=== PATIENT | female | born 1950 | race Caucasian/White ===

== ENCOUNTER 2020-04-19 14:29 | Outpatient (CLI) | payer MEDICARE, BC, SELFPAY ==
--- NOTE | ~2020-04-19 | DEXA_ITS ---
BMD(1) Young-Adult(2) Age-Matched(3) Region (g/cm2) T-score Z-score WHO Classification L1 1.276 1.1 2.6 Normal L2 1.462 2.1 3.6 Normal L3 1.685 3.7 5.3 Normal L4 1.774 4.3 5.8 Normal L1-L4 1.553 2.9 4.4 Normal Trend: L1-L4 Change vs Change vs Measured Age BMD(1) Baseline Previous Date (years) (g/cm2) (%) (%) 04/19/2020 [age] 1.553 baseline - 1 - Statistically 68% of repeat scans fall within 1SD (+- 0.010 g/cm2 for AP Spine L1-L4) 2 - [place] (Combined NHANES (ages 20-30) / PanOptica (ages 20-40)) AP Spine Reference Population (v112) 3 - Matched for Age, Weight (females 25-100 kg), Ethnic 11 - World Health Organization - Definition of Osteoporosis and Osteopenia for Women: Normal = T-score at or above -1.0 SD; Osteopenia = T-score between -1.0 and -2.5 SD; Osteoporosis = T-score at or below -2.5 SD; (WHO definitions only apply when a young healthy Women reference database is used to determine T-scores.) Printed: 04/19/2020 3:08:00 PM (13.60)76:3.00:50.00:12.0 0.00:9.30 0.60x1.05 22.6:%Fat=44.3% 0.00:0.00 0.00:0.00 Filename: [id number] Scan Mode: Standard;OneScan 37.0 G[employer] Mobile [id number] BMD(1) Young-Adult(2,7) Age-Matched(3) Region (g/cm2) T-score Z-score WHO Classification Neck Left 0.833 -1.5 0.0 Osteopenia Right 0.830 -1.5 0.0 Osteopenia Mean 0.832 -1.5 0.0 Osteopenia Difference 0.003 0.0 0.0 - Total Left 0.894 -0.9 0.3 Normal Right 0.862 -1.2 0.1 Osteopenia Mean 0.878 -1.0 0.2 Normal Difference 0.031 0.2 0.2 - Hip [place] Length Comparison (mm) (Right = 103.5 mm) (Mean = 103.2 mm) (Left = 101.6 mm) Trend: Total Mean Change vs Change vs Measured Age BMD(1) Baseline Previous Date (years) (g/cm2) (%) (%) 04/19/2020 69.4 0.878 baseline - 1 - Statistically 68% of repeat scans fall within 1SD (+- 0.010 g/cm2 for DualFemur Total) 2 - [place] (Combined NHANES (ages 20-30) / [employer] (ages 20-40)) Femur Reference Population (v112) 3 - Matched for Age, Weight (females 25-100 kg), Ethnic 7 - DualFemur Total T-score difference is 0.2. Asymmetry is None. 11 - World Health Organization - Definition of Osteoporosis and Osteopenia for Women: Normal = T-score at or above -1.0 SD; Osteopenia = T-score between -1.0 and -2.5 SD; Osteoporosis = T-score at or below -2.5 SD; (WHO definitions only apply when a young healthy Women reference database is used to determine T-scores.) Printed: 04/19/2020 3:08:00 PM (13.60); Filename: [id number]; Right Femur; 18.3:%Fat=28.4%; Neck Angle (deg)= 63; Scan Mode: Standard 37.0 uGy; Left Femur; 18.2:%Fat=25.3%; Neck Angle (deg)= 64; Scan Mode: Standard 37.0 uGy Got[employer] [id number] Dear Jaswinder Joiner, Your patient Kayla Bajwa completed a BMD test on 04/19/2020 using the Gotuit DXA System (analysis version: 13.60) manufactured by [employer]. The following summarizes the results of our evaluation. PATIENT BIOGRAPHICAL: Name: Kayla Bajwa Date: 1950 Height: 62.0 in. Gender: Female Exam Date: 04/19/2020 Weight: 150.0 lbs. Indications: Caffeinated drinks, Fractures: Treatments:
== END 2020-04-19 14:30 | disposition home or self-care (01) ==
LOC: CHSIMG 14:34
PROVIDERS: PCP Family Medicine; Visit Provider Family Medicine
DX: Z78.0 Asymptomatic menopausal state (principal)
CPT/HCPCS: 77080

== ENCOUNTER 2022-02-26 14:52 | Outpatient (CLI) | payer MEDICARE, SELFPAY ==
[2022-02-26 15:56] LABS: Influenza Control Valid (Valid)
== END 2022-02-26 14:53 | disposition home or self-care (01) ==
LOC: CHSLAB 14:57
PROVIDERS: PCP Family Medicine
DX: J01.90 Acute sinusitis, unspecified (principal)
CPT/HCPCS: 87804

== ENCOUNTER 2023-04-08 17:37 | Outpatient (CLI) | payer MEDICARE, BC, SELFPAY ==
--- NOTE | ~2023-04-08 | DEXA_ITS ---
? Bone Density Report? Name:? Garett Lesli Garza Patient ID:??? [id number] Age:? 72 Sex:? Female Ethnicity:? White Date of : 1950 Indication: postmenopausal; screening for osteoporosis; Referring Provider: Marisel, Jaswinder Study: Bone densitometry was performed. Exam Date: April 08, 2023 Accession number: [id number] Bone Density: Region? BMD??? T-score? Z-score?? Classification AP Spine(L2, L3, L4)? 1.282??? 1.8?4.0? Normal Femoral Neck (Left)? 0.681? ? -1.5? 0.3? Osteopenia Total Hip (Left)? 0.862? ? -0.7? 0.9? Normal Femoral Neck (Right)? 0.683? ? -1.5? 0.3? Osteopenia Total Hip (Right)? 0.787? ? -1.3? 0.2? Osteopenia Femoral Neck Mean? 0.682?? -1.5? 0.3? Osteopenia Total Hip Mean? 0.824?? -1.0? 0.6? Normal World Health Organization criteria for BMD impression classify patients as: Normal (T-score at or above -1.0), Osteopenia (T-score between -1.0 and -2.5), or Osteoporosis (T-score at or below -2.5). 10-year Fracture Risk(1): Major Osteoporotic Fracture? 10% Hip Fracture? 1.5% Reported Risk Factors: [place] (), Neck BMD=0.681, BMI=26.5 (1) FRAX? Version 3.08. Fracture probability calculated for an untreated patient. Fracture probability may be lower if the patient has received treatment. Clinical Information Provided by Patient: Has used the following medications: Vitamin D, Calcium Patient maximum height was 62 Menopause Age: 52 Drinks caffeinated beverages Onset of menses at age 14 Number of children 4 Impression: The patient has low bone mass, based on the Left Femoral Neck T- score. Discussion: BONE DENSITY IS LOW AT ONE OR MORE SKELETAL SITES. This patient's lowest T-score is low at one or more skeletal sites.? It meets the World Health Organization's (WHO) criteria for ?low bone mass?? (T-score between -1.0 and -2.5).? The patient's 10-year risk of fracture as calculated by FRAX is less than the threshold where pharmacological therapy is recommended by the National Osteoporosis Foundation (NOF).? However, all treatment decisions require clinical judgment and consideration of individual patient factors, including patient preferences, comorbidities, previous drug use, risk factors not captured in the FRAX model (e.g., frailty, falls, vitamin D deficiency, increased bone turnover, interval significant decline in bone density) and possible under or overestimation of fracture risk by FRAX. The patient should follow a healthful lifestyle (good nutrition with adequate calcium and vitamin D, and appropriate weight-bearing exercise). Follow-Up: Consider repeating this study in 2 to 3 years to reassess this patient's status, or sooner if there is some new clinical indication. Reported by: Dr. Virgil Valenzuela on :43:00 AM. MT[place]na
== END 2023-04-08 17:38 | disposition home or self-care (01) ==
LOC: CHSIMG 17:40
PROVIDERS: PCP Family Medicine; Visit Provider Family Medicine
DX: Z78.0 Asymptomatic menopausal state (principal); M85.89 Other specified disorders of bone density and structure, multiple sites
CPT/HCPCS: 77080

== ENCOUNTER 2023-09-03 14:04 | Outpatient (CLI) | payer MEDICARE, BC, SELFPAY ==
--- NOTE | ~2023-09-03 | XR_ITS ---
Clinical Indication: Cough PA and lateral views of the chest: Comparison: 03/18/2018 Findings: The lungs are clear, without evidence of focal consolidation or pleural effusion. Cardiome diastinal silhouette is within normal limits. Bones and soft tissues are unremarkable. Impression: Normal chest. Reviewed, dictated and finalized at [facility]. MECHANIC APPRENTICE Impression: Normal chest.
== END 2023-09-03 14:05 | disposition home or self-care (01) ==
LOC: CHSLAB 14:06
PROVIDERS: PCP Family Medicine; Visit Provider Family Medicine
DX: R05.9 Cough, unspecified (principal)
CPT/HCPCS: 71046

== ENCOUNTER 2023-09-29 16:18 | Outpatient (RCR) | payer MEDICARE, BC, SELFPAY ==
--- NOTE | 2023-09-30 10:08 | OPREHPOC ---
Outpatient Therapy Plan of Care This is a Multidisciplinary Plan of Care that may contain components documented by all disciplines (PT, OT, and ST.) PT Problem 1 PT Problem #1 Knowledge Deficit PT Goal 1 Goal 1. independent and compliant with HEP Target Visit 6 PT Problem 2 PT Problem #2 Pain PT Goal 1 Goal 1. 3/10 or less pain at worst in the L shoulder with lifting, pushing activities to improve her quality of life and functional activity performance. Target Visit 12 PT Problem 3 PT Problem #3 Impaired Range of Motion PT Goal 1 Goal 1. 160 degrees or better passive L shoulder flexion 2. 150 degrees or better active L shoulder flexion 3. 80 degrees or better active L shoulder ER Target Visit 12 PT Problem 4 PT Problem #4 Impaired Strength PT Goal 1 Goal 1. 4/5 or better L shoulder flexion and abduction without pain 2. 4+/5 or better L shoulder ER Target Visit 12 PT Problem 5 PT Problem #5 Impaired Functional Mobil PT Goal 1 Goal 1. QD to display less than 30% functional deficits 2. patient to achieve functional L UE reach behind head to the shirt collar without pain 3. patient to achieve functional L UR reach behind back to the bra line without pain 4. patient to push open doors/car door without pain Target Visit 12
--- NOTE | 2023-09-30 10:08 | PTOPEVAL1 ---
Assessment and note entered by JT File, PT Evaluation Information Assessment Status Evaluation Diagnosis L biceps tendonitis Onset 09/14/23 Subjective Information patient reports no injury. she reports her symptoms began a few days before skgi. she associates her symptoms around the time she was taken levoquin. she reports she has pain all in the muscle of the L shoulder. she reports opening a car door is painful. she reports she is getting better since initially having pain. she reports at times the pain will go down to the elbow. she reports difficulty with sleeping at time. she reports she does have a little bit of numbness while raising to lay on the L side. she reports she has had surgery on the L side in the past ( rotator cuff repair and subacromial decompression) . she reports she the symptoms are similar to when she had this rotator cuff tear. raising the arm is also painful. Reported Pain Level Pain Score 0: Self Report Assessment PT Clinical Summary mrs. vuong is a 72 yo woman who presents to skilled PT for evaluation and treatment of L shoulder pain. she presents with pain with movement, pain with palpation, decreased active/passive rom, and decreased strength of the L shoulder indicative of a rotator cuff and biceps long head tendonitis. she would benefit from continued skilled PT to improve her objective/functional deficits and progerss to her prior level functional activity performance/quality of life. Plan of Care Interventions Electrical Stimulation,Hot Pack/Cold Pack,Manual Therapy,Neuro Re-education,Patient/Caregiver Educati,Therapeutic Activities,Therapeutic Exercise PT Services Indicated Yes Treatment Frequency and 3x weekly for 12 visits Duration These treatments will address the objective and functional deficits as defined above. The patient will be advanced safely and appropriately in order for the patient to progress towards his/her prior level of function. Additional exercises will be introduced and as well as a comprehensive home exercise program upon discharge, if needed, ?to ensure carryover of functional gains achieved in the clinic. This treatment plan has been reviewed and agreement upon by the patient.
--- NOTE | 2023-10-27 07:50 | OPREHPOC ---
Outpatient Therapy Plan of Care This is a Multidisciplinary Plan of Care that may contain components documented by all disciplines (PT, OT, and ST.) PT Problem 1 PT Problem #1 Knowledge Deficit PT Goal 1 Goal 1. independent and compliant with HEP Target Visit 6 Progress Met PT Problem 2 PT Problem #2 Pain PT Goal 1 Goal 1. 3/10 or less pain at worst in the L shoulder with lifting, pushing activities to improve her quality of life and functional activity performance. Target Visit 12 Progress Partially Met PT Problem 3 PT Problem #3 Impaired Range of Motion PT Goal 1 Goal 1. 160 degrees or better passive L shoulder flexion 2. 150 degrees or better active L shoulder flexion 3. 80 degrees or better active L shoulder ER Target Visit 12 Progress Partially Met PT Problem 4 PT Problem #4 Impaired Strength PT Goal 1 Goal 1. 4/5 or better L shoulder flexion and abduction without pain 2. 4+/5 or better L shoulder ER Target Visit 12 Progress Partially Met PT Problem 5 PT Problem #5 Impaired Functional Mobil PT Goal 1 Goal 1. QD to display less than 30% functional deficits 2. patient to achieve functional L UE reach behind head to the shirt collar without pain 3. patient to achieve functional L UR reach behind back to the bra line without pain 4. patient to push open doors/car door without pain Target Visit 12 Progress Partially Met
--- NOTE | 2023-10-27 07:50 | PTOPPROGNS ---
Assessment and note entered by JT File, PT Evaluation Information Assessment Status Progress Diagnosis L biceps tendonitis Onset 09/14/23 Subjective Information patient reports she feels good today. she reports she has little pain in the L shoulder today. she reports she has been tolerating exercise in therapy well. Assessment PT Clinical Summary mrs. vuong presents to skilled PT for her 10th skilled PT visit this date. thus far in skilled PT she has been performing modalities for pain modulation, exercises for rom, and exercises for strength. as of this date, she displays increased shoulder rom and strength, and overall decreased pain. she would benefit from continued skilled PT to work on achievement of her remaining goals, and progress to and independent HEP when appropriate. Plan of Care Interventions Electrical Stimulation,Hot Pack/Cold Pack,Manual Therapy,Neuro Re-education,Patient/Caregiver Educati,Therapeutic Activities,Therapeutic Exercise PT Services Indicated Yes Treatment Frequency and continue skilled PT for remaining 2 visits per Duration initial POC These treatments will address the objective and functional deficits as defined above. The patient will be advanced safely and appropriately in order for the patient to progress towards his/her prior level of function. Additional exercises will be introduced and as well as a comprehensive home exercise program upon discharge, if needed, ?to ensure carryover of functional gains achieved in the clinic. This treatment plan has been reviewed and agreement upon by the patient.
--- NOTE | 2023-10-29 12:03 | OPREHPOC ---
Outpatient Therapy Plan of Care This is a Multidisciplinary Plan of Care that may contain components documented by all disciplines (PT, OT, and ST.) PT Problem 1 PT Problem #1 Knowledge Deficit PT Goal 1 Goal 1. independent and compliant with HEP Target Visit 6 Progress Met PT Problem 2 PT Problem #2 Pain PT Goal 1 Goal 1. 3/10 or less pain at worst in the L shoulder with lifting, pushing activities to improve her quality of life and functional activity performance. Target Visit 12 Progress Met PT Problem 3 PT Problem #3 Impaired Range of Motion PT Goal 1 Goal 1. 160 degrees or better passive L shoulder flexion 2. 150 degrees or better active L shoulder flexion 3. 80 degrees or better active L shoulder ER Target Visit 12 Progress Met PT Problem 4 PT Problem #4 Impaired Strength PT Goal 1 Goal 1. 4/5 or better L shoulder flexion and abduction without pain 2. 4+/5 or better L shoulder ER Target Visit 12 Progress Met PT Problem 5 PT Problem #5 Impaired Functional Mobil PT Goal 1 Goal 1. QD to display less than 30% functional deficits 2. patient to achieve functional L UE reach behind head to the shirt collar without pain 3. patient to achieve functional L UR reach behind back to the bra line without pain 4. patient to push open doors/car door without pain Target Visit 12 Progress Met
--- NOTE | 2023-10-29 12:03 | PTOPDC ---
Assessment and note entered by Sarah Locke, PT Evaluation Information Assessment Status Discharge Diagnosis L Biceps Tendonitis Onset 09/14/23 Subjective Information Kayla Bajwa reports her left shoulder is doing better. She is able to use her left arm to carry and lift household items without pain now. She occasionally has pain after repetitive use but she was able to carry boxes with [place] decorations without difficulty. She feels she is ready to continue on her own with home exercises. Reported Pain Level Pain Score 0: Self Report Pain Score 1: Self Report Assessment PT Clinical Summary Kayla Bajwa has completed 12 skilled PT visits. She is reporting ability to perform daily activities without pain now. She demonstrates improved left shoulder AROM to normal ranges, improved left shoulder strength, and improved posture. She will be discharged to an independent [facility]. Plan of Care PT Services Indicated Yes
== END 2023-10-29 16:18 | disposition home or self-care (01) ==
LOC: CHSPT 16:18
PROVIDERS: PCP Family Medicine; Visit Provider Family Medicine
DX: M75.22 Bicipital tendinitis, left shoulder (principal)
CPT/HCPCS: 97014; 97110; 97140; 97161; G0283

== ENCOUNTER 2024-08-10 08:14 | Outpatient (RCR) | payer MEDICARE, BC, SELFPAY ==
[2024-08-10 08:30] VITALS: BP_SYST 110
--- NOTE | 2024-08-11 07:50 | OPREHPOC ---
Outpatient Therapy Plan of Care This is a Multidisciplinary Plan of Care that may contain components documented by all disciplines (PT, OT, and ST.) PT Problem 1 PT Problem #1 Knowledge Deficit PT Goal 1 Goal / Goal Update 1. independent and compliant with HEP Target Visit 6 PT Problem 2 PT Problem #2 Pain PT Goal 1 Goal / Goal Update 1. decrease pain at worst to 3/10 or less in the R shoulder Target Visit 12 PT Problem 3 PT Problem #3 Impaired Range of Motion PT Goal 1 Goal / Goal Update 1. improve active R shoulder flexion to 150 degrees or better 2. improve active R shoulder abduction to 135 degrees or better 3. improve active R shoulder ER to 80 degrees or better 4. improve active R shoulder IR to 70 degrees or better Target Visit 12 PT Problem 4 PT Problem #4 Impaired Strength PT Goal 1 Goal / Goal Update 1. improve R shoulder strength to 4+/5 or better overall 2. improve R elbow strength to 5/5 Target Visit 12 PT Problem 5 PT Problem #5 Impaired Functional Mobil PT Goal 1 Goal / Goal Update 1. quick dash to display 30% or less functional deficits 2. patient to get dressed without pain 3. patient to reach behind back to the bra line without pain Target Visit 12
--- NOTE | 2024-08-11 07:50 | PTOPEVAL1 ---
Assessment and note entered by JT File, PT Evaluation Information Assessment Status Evaluation ICD-10 Condition Codes (PT) M25.511 Onset 07/27/24 Subjective Information patient reports she was in [place] and moving around her luggage and other peoples luggage. she reports she was in a small room, and was frequently having to lift her suitcase up and down on her bed to change and get new clothes. she reports she has increased pain with use of the R UE. she reports she is able to lift the arm up, but it is very painful. she reports the pain is in the side of the R shoulder. she reports lifting the arm up forward is better, but still painful. she is taking anti-inflammatory meds, but they do not totally get rid of her pain/symptoms. she reports she has not had any imaging or injections. she reports she does get a small amount of tingling in the R hand when the pain is really severe or she is very active. Reported Pain Level Pain Score 8: Self Report Assessment PT Clinical Summary mrs. vuong presents to skilled PT services for evaluation and treatment of R shoulder pain. she is experiencing pain for 2 weeks that is getting better. however, she presents still with pain at rest, pain with movement, decreased rom, weakness, and decreased functional activity performance/ reaching. she presents with signs and symptoms consistent with a RTC tendinopathy and impingement syndrome. she would benefit from continued skilled PT to address her objective/functional deficits to return to her prior level functional activity performance/quality of life. Plan of Care Interventions Electrical Stimulation,Hot Pack/Cold Pack,Manual Therapy,Neuro Re-education,Patient/Caregiver Educati,Therapeutic Activities,Therapeutic Exercise PT Services Indicated Yes Treatment Frequency and 3x weekly for 12 visits Duration These treatments will address the objective and functional deficits as defined above. The patient will be advanced safely and appropriately in order for the patient to progress towards his/her prior level of function. Additional exercises will be introduced and as well as a comprehensive home exercise program upon discharge, if needed, ?to ensure carryover of functional gains achieved in the clinic. This treatment plan has been reviewed and agreement upon by the patient.
--- NOTE | 2024-08-31 11:22 | OPREHPOC ---
Outpatient Therapy Plan of Care This is a Multidisciplinary Plan of Care that may contain components documented by all disciplines (PT, OT, and ST.) PT Problem 1 PT Problem #1 Knowledge Deficit PT Goal 1 Goal / Goal Update 1. independent and compliant with HEP Target Visit 6 PT Problem 2 PT Problem #2 Pain PT Goal 1 Goal / Goal Update 1. decrease pain at worst to 3/10 or less in the R shoulder Target Visit 12 Progress Not Met PT Goal 2 Goal / Goal Update continue PT Problem 3 PT Problem #3 Impaired Range of Motion PT Goal 1 Goal / Goal Update 1. improve active R shoulder flexion to 150 degrees or better not met 2. improve active R shoulder abduction to 135 degrees or better not met 3. improve active R shoulder ER to 80 degrees or better not met 4. improve active R shoulder IR to 70 degrees or better met Target Visit 12 Progress Partially Met PT Goal 2 Goal / Goal Update continue 1-3 PT Problem 4 PT Problem #4 Impaired Strength PT Goal 1 Goal / Goal Update 1. improve R shoulder strength to 4+/5 or better overall 2. improve R elbow strength to 5/5 Target Visit 12 Progress Not Met PT Goal 2 Goal / Goal Update continue PT Problem 5 PT Problem #5 Impaired Functional Mobil PT Goal 1 Goal / Goal Update 1. quick dash to display 30% or less functional deficits 2. patient to get dressed without pain 3. patient to reach behind back to the bra line without pain Target Visit 12 Progress Not Met PT Goal 2 Goal / Goal Update continue
--- NOTE | 2024-08-31 11:22 | PTOPPROG ---
Assessment and note entered by Sarah Locke, PT Evaluation Information Assessment Status Progress ICD-10 Condition Codes (PT) M25.511 Onset 07/27/24 Subjective Information Kayla Bajwa reports her right shoulder was getting better but over the last weekend she had a regression and had to start taking Naproxen again. She was woke up with pain again on 08/30/24. She does not recall an incident that made pain worsen. Assessment PT Clinical Summary Kayla Bajwa has completed 10 skilled PT visits for right shoulder pain. She is reporting pain was improving until the past weekend it started to increase again. She did have new treatments introduced last week which may explain the increase in pain. She is demonstrating regressed right shoulder AROM today with pain elicited with abduction AROM. She has decreased strength in the right shoulder and continues to have positive special tests consistent with bicep and rotator cuff pathology. She will continue to benefit from skilled PT but was also referred to make a follow up with her physician. Plan of Care Interventions Electrical Stimulation,Hot Pack/Cold Pack,Patient/ Caregiver Educati,Therapeutic Exercise,Ultrasound PT Services Indicated Yes Treatment Frequency and Continue skilled PT x 2 more visits per original Duration POC These treatments will address the objective and functional deficits as defined above. The patient will be advanced safely and appropriately in order for the patient to progress towards his/her prior level of function. Additional exercises will be introduced and as well as a comprehensive home exercise program upon discharge, if needed, ?to ensure carryover of functional gains achieved in the clinic. This treatment plan has been reviewed and agreement upon by the patient.
--- NOTE | 2024-09-05 11:40 | PTOPDC ---
Assessment and note entered by Cornel Montes Evaluation Information Assessment Status Discharge ICD-10 Condition Codes (PT) M25.511 Onset 07.27.24 Subjective Information Pt. reports that she has better mobility in the right shoulder. She states that despite mobility improvements she continues to have intense pain. she reports she is following up with her doctor this afternoon and may discuss an injection. Reported Pain Level Pain Score 6: Self Report Assessment PT Clinical Summary While pt. demonstrates improvements in strength and mobility, she continues to have pain. At this time pt. is going to be discharged from our care and will return to her doctor to discuss injection for further pain reduction. Plan of Care PT Services Indicated No
== END 2024-09-05 13:40 | disposition home or self-care (01) ==
LOC: CHSPT 08:14
PROVIDERS: PCP Family Medicine; Visit Provider Family Medicine
DX: M25.811 Other specified joint disorders, right shoulder (principal)
CPT/HCPCS: 97014; 97035; 97110; 97140; 97161; G0283